=== PATIENT | male | born 1940 | race African-American/Black ===

== ENCOUNTER 2017-03-27 12:07 | Day surgery (SDC) | payer MEDICARE ==
[2017-03-23 16:26] VITALS: BMI 43.7
[~2017-03-27 12:07] MED LIST: DEXAMETHASONE SOD PHOSPHATE 10 MG/ML 1 ML VIAL IV ONE; HYDROmorphone 1 MG/ML 1 ML SYRINGE IVP PRN; LACTATED RINGERS 1,000 ML IV SCH; LIDOCAINE 1% 20 ML VIAL (10MG/ML) FOR IV START INTRADERMA PRN; ONDANSETRON 4 MG/2 ML VIAL IVP ONE; Pre Op ABX Message 1 EACH MISC MISCELLANE ONE; SCOPOLAMINE 1.5MG/72HR PATCH TRANSDERM ONE
[2017-03-27] MEDS ORDERED: BUPIVACAINE (PF) 0.5% 30 ML VIAL SQ ONE ×2 (13:20→14:35)
[2017-03-27] MEDS ORDERED: LIDOCAINE 2% INJ 20 MG/ML SQ ONE ×2 (13:21→14:35)
[2017-03-27 13:35] VITALS: RESP 16; TEMP 98.1
[2017-03-27] MEDS ORDERED: PROPOFOL 10 MG/ML 20 ML VIAL IV ONE (14:18)
[2017-03-27 15:01] VITALS: PULSE 63
[2017-03-27 15:28] VITALS: BP 108/71
--- NOTE | 2017-04-02 08:14 | OP ---
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 Right carpal tunnel syndrome. 2. Cubital tunnel syndrome, right elbow. POSTOPERATIVE DIAGNOSES: 1. Right carpal tunnel syndrome. 2. Cubital tunnel syndrome, right elbow. OPERATION: 1. Right carpal tunnel release. 2. Right cubital tunnel release. ANESTHESIA: ESTIMATED BLOOD LOSS: SPECIMENS REMOVED: COMPLICATIONS: OPERATIVE FINDINGS: DESCRIPTION OF PROCEDURE: PROCEDURE #1: The patient was taken to the operative suite where a sedation was administered by the Department of Anesthesia. I then performed a local injection along the line of the incision with a combination of Marcaine and Xylocaine both without epinephrine. The arm and hand were then prepped and draped in the usual manner. The arm was elevated, exsanguinated and the cuff was inflated to 250 mmHg. A longitudinal incision was made along the ring finger ray distal to the wrist crease. Dissection was taken through the skin and subcutaneous tissue, initially sharp through the skin and then blunt through the subcutaneous tissue to ensure protection of any potential terminal transverse branches of the palmar cutaneous nerve. The palmar fascia was then incised under direct vision longitudinally exposing the transverse carpal ligament. The transverse carpal ligament also was incised under direct vision. The dissection was then continued proximally beneath the skin under direct vision to release the distal forearm fascia. The median nerve was then reflected free of tenosynovium to ensure no adhesions. The tourniquet was then released. The wound was then irrigated and the skin was closed with a running 5-0 nylon suture. A soft bulky dressing was applied including a volar plaster splint holding the wrist in a neutral slightly extended position. PROCEDURE #2: A longitudinal incision was made, somewhat posteriorly near the olecranon. Dissection was then taken through the skin and subcutaneous tissue with blunt dissection then performed to protect any posterior branches of the medial antebrachial cutaneous nerve of the arm. The ulnar nerve was then visualized in the retrocondylar groove and was traced in both the proximal and distal directions. Care was taken to ensure all potential sites of nerve entrapment were decompressed including the arcade of [place], the medial intermuscular septums, the retrocondylar groove, decubital tunnel and the flexor aponeurosis distally. Care was taken to avoid dissecting the ulnar nerve from its vascular supply. At the completion of the procedure, the elbow was placed in flexion and there is no sign of subluxation. The wound was then irrigated and the skin was closed with running 5-0 nylon suture. Marcaine was injected for long acting anesthetic. A soft bulky dressing was applied and the patient taken to the recovery room in satisfactory condition.
== END 2017-03-27 15:37 | disposition home or self-care (01) ==
LOC: OR 12:07
PROVIDERS: ATTEND Orthopaedic Surgery Hand Surgery
DX: G56.01 Carpal tunnel syndrome, right upper limb (principal); G56.21 Lesion of ulnar nerve, right upper limb; I11.0 Hypertensive heart disease with heart failure; I50.9 Heart failure, unspecified; E78.5 Hyperlipidemia, unspecified; J45.909 Unspecified asthma, uncomplicated; G47.30 Sleep apnea, unspecified; K21.9 Gastro-esophageal reflux disease without esophagitis; I25.10 Atherosclerotic heart disease of native coronary artery without angina pectoris; Z95.5 Presence of coronary angioplasty implant and graft; I25.2 Old myocardial infarction; Z79.82 Long term (current) use of aspirin; Z79.891 Long term (current) use of opiate analgesic; Z79.899 Other long term (current) drug therapy; Z87.891 Personal history of nicotine dependence
CPT/HCPCS: 64721; 64718; J2001; J1100; J2405; J2704

== ENCOUNTER → 2018-03-27 | Outpatient (CLI) | payer MEDICARE ==
[2018-03-27 13:17] LABS: Basophils % (A) 1 %; Eosinophils % (A) 0 %; HGB 12.8 gm/dL (13.0-17.5); Hypochromasia Marked; Lymphocytes # (A) 0.8 k/uL (1.0-4.8); Lymphocytes % (A) 14 %; MCH 25.7 pg (25.0-35.0); MCHC 31.2 g/dL (31.0-37.0); MCV 82.6 fL (80.0-100.0); Mean Platelet Volume 7.7; Monocytes # (A) 0.4 k/uL (0-1.0); Monocytes % (A) 7 %; Neutrophils # (A) 4.5 k/uL (1.3-7.7); Neutrophils % (A) 75 %; Platelet Count 178 k/uL (150-450); RBC 4.97 m/uL (4.30-5.90); RDW 15.5 % (11.5-15.5)
[2018-03-27 13:44] LABS: ALT 35 U/L (21-72); AST 31 U/L (17-59); Albumin 3.7 g/dL (3.5-5.0); Alkaline Phosphatase 100 U/L (38-126); Anion Gap 11 mmol/L; Blood Urea Nitrogen 17 mg/dL (9-20); C Reactive Protein 33.9 mg/L (<10.0); Calcium 9.6 mg/dL (8.4-10.2); Carbon Dioxide 30 mmol/L (22-30); Chloride 104 mmol/L (98-107); Cholesterol 126 mg/dL (<200); Creatine Kinase 115 U/L (55-170); Glucose 88 mg/dL (74-99); HDL Cholesterol 44 mg/dL (40-60); LDH 552 U/L (313-618); LDL Cholesterol,Calculated 73 mg/dL (0-99); Magnesium 2.1 mg/dL (1.6-2.3); Phosphorus 3.3 mg/dL (2.5-4.5); Potassium 4.5 mmol/L (3.5-5.1); Sodium 145 mmol/L (137-145); Total Bilirubin 0.4 mg/dL (0.2-1.3); Total Protein 6.7 g/dL (6.3-8.2); Triglycerides 43 mg/dL (<150)
[2018-03-27 14:08] LABS: Prostate Specific Antigen 1.18 ng/mL (0.00-4.00)
[2018-03-27 15:55] LABS: Erythrocyte Sedimentation Rate 28 mm/hr (0-15)
[2018-03-27 21:25] LABS: Parathyroid Hormone Intact 21.1 pg/mL (14.0-72.0)
[2018-03-27 21:55] LABS: Hemoglobin A1C 5.9 % (4.0-6.0)
[2018-03-27 22:38] LABS: Iron Saturation 7.45 (15.00-50.00)
[2018-03-27 22:43] LABS: Vitamin D 25 Hydroxy 43.9 ng/mL (30.0-100.0)
== END | disposition home or self-care (01) ==
LOC: LABWHC1 12:17
PROVIDERS: ATTEND Internal Medicine
DX: D64.9 Anemia, unspecified (principal); M10.9 Gout, unspecified; E11.22 Type 2 diabetes mellitus with diabetic chronic kidney disease; N18.3 Chronic kidney disease, stage 3 (moderate); E78.5 Hyperlipidemia, unspecified; E21.3 Hyperparathyroidism, unspecified; I12.9 Hypertensive chronic kidney disease with stage 1 through stage 4 chronic kidney disease, or unspecified chronic kidney disease; E55.9 Vitamin D deficiency, unspecified; M81.0 Age-related osteoporosis without current pathological fracture; Q61.9 Cystic kidney disease, unspecified
CPT/HCPCS: 36415; 80053; 80061; 82306; 82550; 82728; 83036; 83540; 83550; 83615; 83735; 83970; 84100; 84153; 84439; 84443; 84550; 85025; 85652; 86140

== ENCOUNTER → 2018-04-16 | Outpatient (CLI) | payer MEDICARE ==
--- NOTE | 2018-04-16 22:06 | CT ---
EXAMINATION TYPE: CT chest w con DATE OF EXAM: 04/16/2018 COMPARISON: Most recent chest x-ray January 18, 2010 HISTORY: Productive cough per patient. Unspecified pulmonary fibrosis per order. CT DLP: 662 mGycm. Automated Exposure Control for Dose Reduction was Utilized. TECHNIQUE: CT scan of the thorax is performed following with IV Contrast, patient injected with 100 mL of Isovue 300. FINDINGS: LUNGS: There is redemonstration bulla and bleb formation with scarring and honeycomb formation involv ing the inferior lateral right upper lobe. There are additional areas of reticulation and scarring wi th honeycombing in both lower lobes most prominent near diaphragms. There is scarring and honeycombin g in the right middle lobe and lingula near the diaphragms. There is relative sparing with some perip heral reticulation and fibrosis involving the periphery of the left upper lobe. No suspicious focal c onsolidation is present. No pleural effusion or pneumothorax is noted. There is mild central bronchie ctasis. MEDIASTINUM: There are no greater than 1 cm hilar or mediastinal lymph nodes. No cardiomegaly or pe ricardial effusion is seen. There is moderate to severe three-vessel coronary artery calcification w hich is noted marker for coronary artery disease. Main pulmonary artery measures 3.0 cm at the bifurc ation axial image 26, CT findings consistent with mild underlying pulmonary hypertension. Adjacent as cending aorta measures 4.0 cm in diameter. OTHER: There is moderate size hiatal hernia. Ingested pill is noted dependently in gastric antrum. Th ere are few simple appearing cysts upper pole of the right kidney. There is multilevel spurring inter space narrowing in the thoracic spine. Exaggerated thoracic kyphosis is seen. IMPRESSION: Bilateral parenchymal fibrosis redemonstrated with relative sparing of left upper lobe, n o suspicious acute pulmonary process. No obvious progression from 2010 chest x-ray.
== END | disposition home or self-care (01) ==
LOC: RADCTMAIN 16:43
PROVIDERS: ATTEND Internal Medicine
DX: J84.10 Pulmonary fibrosis, unspecified (principal)
CPT/HCPCS: 82565; 84520; 71260; 36415; Q9967

== ENCOUNTER → 2018-08-21 | Outpatient (CLI) | payer MEDICARE ==
[2018-08-21 12:46] LABS: Basophils % (A) 0 %; Eosinophils % (A) 0 %; HCT 45.7 % (39.0-53.0); HGB 13.6 gm/dL (13.0-17.5); Hypochromasia Marked; Lymphocytes # (A) 0.9 k/uL (1.0-4.8); Lymphocytes % (A) 14 %; MCH 27.8 pg (25.0-35.0); MCHC 29.8 g/dL (31.0-37.0); MCV 93.1 fL (80.0-100.0); Mean Platelet Volume 8.3; Monocytes # (A) 0.5 k/uL (0-1.0); Monocytes % (A) 7 %; Neutrophils # (A) 4.7 k/uL (1.3-7.7); Neutrophils % (A) 75 %; Platelet Count 194 k/uL (150-450); RBC 4.91 m/uL (4.30-5.90); RDW 15.3 % (11.5-15.5); Reticulocyte % 1.4 % (0.5-2.0); WBC 6.3 k/uL (3.8-10.6)
[2018-08-21 20:06] LABS: Iron Saturation 8.89 (15.00-50.00)
== END | disposition home or self-care (01) ==
LOC: LABWHC1 12:06
PROVIDERS: ATTEND Internal Medicine
DX: D64.9 Anemia, unspecified (principal)
CPT/HCPCS: 36415; 82728; 83540; 83550; 85025; 85045

== ENCOUNTER → 2018-09-03 | Outpatient (CLI) | payer MEDICARE ==
[2018-09-03 19:13] LABS: ALT 19 U/L (10-49); AST 29 U/L (14-35); Albumin/Globulin Ratio 1.59 (1.20-2.10); Alkaline Phosphatase 102 U/L (41-126); C Reactive Protein <0.4 mg/dL (0.0-0.8); Calcium 8.8 mg/dL (8.7-10.3); Carbon Dioxide 29.9 mmol/L (21.6-31.8); Chloride 112 mmol/L (96-109); Globulin 2.2 g/dL (2.1-3.7); Glucose 92 mg/dL (70-110); Potassium 4.4 mmol/L (3.5-5.5); Sodium 146 mmol/L (135-145); Total Bilirubin 0.2 mg/dL (0.3-1.2); Total Protein 5.7 g/dL (6.2-8.2)
[2018-09-03 20:31] LABS: Protein, Total 5.7 g/dL (6.2-8.2); Rheumatoid Factor 17 IU/mL (0-15)
[2018-09-03 21:32] LABS: Anti-DNA, DS unit <1.0 IU/mL; Cyclic Citrullinated Pep IgG NEGATIVE (NEGATIVE); DNA Double-Stranded NEGATIVE (NEGATIVE)
[2018-09-04 11:57] LABS: Complement C3 81.6 mg/dL (80.0-207.0)
[2018-09-04 13:20] LABS: ANA Pattern Speckled
[2018-09-05 11:32] LABS: Albumin 2.99 g/dL (3.80-4.90); Gamma Globulin 1.14 g/dL (0.70-1.50)
== END | disposition home or self-care (01) ==
LOC: LABWHC1 12:55
PROVIDERS: ATTEND Internal Medicine
DX: J44.9 Chronic obstructive pulmonary disease, unspecified (principal); D64.9 Anemia, unspecified; M81.0 Age-related osteoporosis without current pathological fracture; J84.10 Pulmonary fibrosis, unspecified; M06.9 Rheumatoid arthritis, unspecified; M35.9 Systemic involvement of connective tissue, unspecified
CPT/HCPCS: 36415; 80053; 83735; 84165; 85652; 86038; 86039; 86140; 86160; 86162; 86200; 86225; 86235; 86334; 86335; 86431

== ENCOUNTER → 2018-10-08 | Outpatient (CLI) | payer MEDICARE ==
--- NOTE | 2018-10-08 15:55 | XR ---
EXAMINATION TYPE: XR ankle complete 3 views bilateral, XR foot complete 3 views bilateral DATE OF EXAM: 10/08/2018 Comparison: None Clinical History: 78-year-old male with pain, limited range of motion, M81.0 Osteoarthritis Findings: Left: Old healed fracture deformity distal fibular shaft. Diffuse soft tissue swelling is present. While th e ankle mortise is maintained, there is some irregularity of the subchondral bone along the medial ta lar dome. There is severe pes planus deformity and nonspecific forefoot and midfoot soft tissue swell ing. Hallux valgus deformity with bunion and moderate degenerative change at the first MTP joint. Mod erate degenerative changes at both calcaneal cuboidal and talonavicular joints. Right: Hindfoot valgus deformity with degenerative joint space narrowing at the tibiotalar joint and irregul arity of the subchondral bone along the lateral talar dome. Soft tissue swelling. Severe pes planus d eformity. Suspect underlying degenerative change within the subtalar joint which is not well delineat ed due to the severe pes planus. Degenerative changes at least moderate at the talonavicular and calc aneocuboid joints. Hallux valgus deformity with bunion and moderate degenerative change of the first MTP joint. Combined Impression: 1. Severe pes planus on both sides with resultant hindfoot valgus and right greater than left tibiota lar and subtalar joint osteoarthrosis. 2. Additional midfoot osteoarthrosis particularly affecting the talonavicular and calcaneocuboid join ts. 3. Bilateral hallux valgus deformities with bunion and moderate first MTP joint OA. 4. Nonspecific soft tissue swelling throughout the ankles and feet.
== END ==
LOC: RADXRMAIN 15:15
PROVIDERS: ATTEND Internal Medicine
DX: M19.071 Primary osteoarthritis, right ankle and foot (principal); M81.0 Age-related osteoporosis without current pathological fracture; M20.12 Hallux valgus (acquired), left foot; M20.11 Hallux valgus (acquired), right foot

== ENCOUNTER 2018-10-17 09:21 | Day surgery (SDC) | payer MEDICARE ==
[2018-10-12 12:45] VITALS: BMI 30.6
[~2018-10-17 09:21] MED LIST changes: -DEXAMETHASONE SOD PHOSPHATE 10 MG/ML 1 ML VIAL IV ONE; -HYDROmorphone 1 MG/ML 1 ML SYRINGE IVP PRN; -LIDOCAINE 1% 20 ML VIAL (10MG/ML) FOR IV START INTRADERMA PRN; -ONDANSETRON 4 MG/2 ML VIAL IVP ONE; -Pre Op ABX Message 1 EACH MISC MISCELLANE ONE; -SCOPOLAMINE 1.5MG/72HR PATCH TRANSDERM ONE
[2018-10-17 09:55] VITALS: RESP 16; TEMP 98.4
[2018-10-17] MEDS ORDERED: MIDAZOLAM 2 MG/2 ML VIAL ONE (09:56)
[2018-10-17] MEDS ORDERED: fentaNYL (PF) 50 MCG/ML 2 ML AMP ONE (09:56)
[2018-10-17] MEDS ORDERED: PROPOFOL 10 MG/ML 20 ML VIAL IV ONE (09:56)
[2018-10-17] MEDS ORDERED: LIDOCAINE 1% 20 ML VIAL (10MG/ML) FOR IV START INTRADERMA ONE (09:57)
--- NOTE | 2018-10-17 10:09 | P.PCN ---
Date of Procedure: 10/17/18 Procedure(s) Performed: BRIEF HISTORY: Patient is a 78-year-old, pleasant, has intermittent male, scheduled for an upper endoscopy as a part of evaluation of iron deficiency anemia. He lately has been having severe heartburn and passive regurgitation for the last month with small amount of blood in the emesis on 2 different occasions. His being on [place] 40 mg daily for a month and doing much better.. PROCEDURE PERFORMED: Esophagogastroduodenoscopy with biopsy. PREOPERATIVE DIAGNOSIS: GERD/passive regurgitation/iron deficiency anemia. IV sedation per anesthesia. PROCEDURE: After informed consent was obtained, the patient was brought into the endoscopy unit. IV sedation was administered by Anesthesia under continuous monitoring. Initially the Olympus GIF-140 video endoscope was inserted into the mouth. Esophagus intubated without any difficulty. It was gradually advanced into the stomach and duodenum and carefully examined. The bulb and the second part of the duodenum appeared normal. The scope at this time was withdrawn to the stomach, adequately insufflated with air, and upon careful examination, mucosa of the antrum, body, cardia and the fundus appeared normal. The scope was then withdrawn into the esophagus. There was a moderate to large size hiatal hernia. The diaphragmatic impression was located at 40 cm from the incisors. The GE junction was located at 35 cm from the incisors. There was a long segment of Nash's esophagus extending from 30-35 to the stomach incisors and the mucosa in the segment of Nash's esophagus had superficial erosions especially at 32 cm from the incisors and multiple biopsies were done from these areas. Proximal to the segment of Nash's esophagus there were linear erosions consistent with LA grade B reflux esophagitis. The rest of esophagus appeared normal and the patient tolerated the procedure well. IMPRESSION: 1. 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 2. Moderate to large size hiatal hernia. 3. Linear erosions in the distal esophagus consistent with LA grade B reflux esophagitis. RECOMMENDATIONS: The findings of this examination were discussed with the patient as well as his family. He was advised to follow with the biopsies as. He will be started on Protonix 40 minute grams twice daily to be taken half hour before breakfast and dinnertime and follow antireflux measures. He'll be seen in office in 6 weeks.
[2018-10-17 10:28] VITALS: BP 139/87; PULSE 74
== END 2018-10-17 11:08 | disposition home or self-care (01) ==
LOC: ORWHC2ENDO 09:21
PROVIDERS: ATTEND Internal Medicine Gastroenterology
DX: K22.70 Barrett's esophagus without dysplasia (principal); K44.9 Diaphragmatic hernia without obstruction or gangrene; Z79.899 Other long term (current) drug therapy; I25.10 Atherosclerotic heart disease of native coronary artery without angina pectoris; I10 Essential (primary) hypertension; I25.2 Old myocardial infarction; E78.49 Other hyperlipidemia; Z95.5 Presence of coronary angioplasty implant and graft; K21.9 Gastro-esophageal reflux disease without esophagitis; Z79.891 Long term (current) use of opiate analgesic
CPT/HCPCS: 88305; 43239; J2250; J3010; J2704

== ENCOUNTER → 2019-01-21 | Outpatient (CLI) | payer MEDICARE ==
[2019-01-21 20:01] LABS: ALT 13 U/L (10-49); AST 22 U/L (14-35); C Reactive Protein <0.4 mg/dL (0.0-0.8); Calcium 9.2 mg/dL (8.7-10.3); Carbon Dioxide 33.8 mmol/L (21.6-31.8); Chloride 103 mmol/L (96-109); Cholesterol 133 mg/dL (0-200); Creatine Kinase 110 U/L (35-257); Glucose 83 mg/dL (70-110); LDL Cholesterol,Calculated 82.6 mg/dL (0.0-131.0); Potassium 4.3 mmol/L (3.5-5.5); Sodium 141 mmol/L (135-145); Uric Acid 6.1 mg/dL (3.7-8.7)
== END ==
LOC: LABWHC1 11:30
PROVIDERS: ATTEND Internal Medicine
DX: E78.5 Hyperlipidemia, unspecified (principal); E87.8 Other disorders of electrolyte and fluid balance, not elsewhere classified; K75.9 Inflammatory liver disease, unspecified; T50.905A Adverse effect of unspecified drugs, medicaments and biological substances, initial encounter
CPT/HCPCS: 36415; 80048; 80061; 82550; 84450; 84460; 84550; 85652; 86140

== ENCOUNTER 2019-02-05 12:56 | Observation (INO) | payer MEDICARE ==
--- NOTE | 2019-02-05 13:37 | ED ---
General Adult HPI - General Chief complaint: Chest Pain Stated complaint: chest pain Time Seen by Provider: 02/05/19 13:23 Source: patient, RN notes reviewed Mode of arrival: wheelchair Limitations: no limitations - History of Present Illness Initial comments: 78-year-old male presenting for evaluation of chest pain. Patient sent in from primary care office with chief complaint of chest pain. He does have history of CAD, previous stenting. He developed substernal chest pain which radiated to his back. This is been intermittent over the past 3 or 4 days. He has some associated nausea and vomiting. No diaphoresis. Denies chest pain at the time of my evaluation. Denies abdominal pain. Denies history of DVT or PE. He does report some minimal lower extremity swelling which does resolve with rest and elevation. - Related Data Home Medications Medication Instructions Recorded Confirmed Cholecalciferol (Vitamin D3) 2,000 unit PO DAILY 03/23/17 10/17/18 [Vitamin D3] Cod Liver Oil 2 cap PO DAILY 03/23/17 10/17/18 Hydrochlorothiazide [Hydrodiuril] 25 mg PO DAILY 03/23/17 10/17/18 Magnesium Oxide [Magnesium] 500 mg PO DAILY 03/23/17 10/17/18 Metoprolol Tartrate [Lopressor] 50 mg PO BID 03/23/17 10/17/18 Vitamin B Complex 1 each PO DAILY 03/23/17 10/17/18 Vitamin E (Dl,Tocopheryl Acet) 800 unit PO DAILY 03/23/17 10/17/18 [Vitamin E] traMADol HCL [Ultram] 50 mg PO BID PRN 03/23/17 10/17/18 Ferrous Sulfate [Feosol] 325 mg PO BID 10/12/18 10/17/18 Allergies Allergy/AdvReac Type Severity Reaction Status Date / Time No Known Allergies Allergy Verified 10/17/18 09:58 Review of Systems ROS Statement: Those systems with pertinent positive or pertinent negative responses have been documented in the HPI. ROS Other: All systems not noted in ROS Statement are negative. Past Medical History Past Medical History: GERD/Reflux, Hyperlipidemia, Hypertension, Myocardial Infarction ([place]) Additional Past Medical History / Comment(s): constipation, spit up blood recently, shortness of breath with exertion Last Myocardial Infarction Date:: 2001 History of Any Multi-Drug Resistant Organisms: None Reported Past Surgical History: Heart Catheterization With Stent, Prostate Surgery, Tonsillectomy Additional Past Surgical History / Comment(s): BILAT EYE SX. SKIN GRAFTS. TURP. COLONOSCOPY, rt foot toes bone removed, 2nd toe from great toe lt foot bone removed Past Anesthesia/Blood Transfusion Reactions: No Reported Reaction Date of Last Stent Placement:: 2001 Past Psychological History: No Psychological Hx Reported Smoking Status: Former smoker - Past Family History Mother Family Medical History: No Reported History Father Additional Family Medical History / Comment(s): mesothelioma General Exam Limitations: no limitations General appearance: alert, in no apparent distress Head exam: Present: atraumatic, normocephalic Eye exam: Present: normal appearance, PERRL ENT exam: Present: normal exam Neck exam: Present: normal inspection. Absent: tenderness, meningismus Respiratory exam: Present: normal lung sounds bilaterally. Absent: respiratory distress, wheezes Cardiovascular Exam: Present: regular rate, normal rhythm, systolic murmur GI/Abdominal exam: Present: soft. Absent: distended, tenderness Extremities exam: Present: normal inspection, normal capillary refill. Absent: pedal edema Neurological exam: Present: alert, oriented X3, CN II-XII intact. Absent: motor sensory deficit Psychiatric exam: Present: normal affect, normal mood Skin exam: Present: warm, dry, intact. Absent: cyanosis, diaphoretic Course Vital Signs 02/05/19 02/05/19 12:58 15:28 Temperature 98.4 F 98.6 F Pulse Rate 89 89 Respiratory 16 18 Rate Blood Pressure 125/83 124/90 O2 Sat by Pulse 100 98 Oximetry EKG Findings - EKG Comments: EKG Findings:: EKG: Normal sinus rhythm, sinus arrhythmia, ventricular rate 88, SD interval 160, QRS duration 86, QTC 447, no ischemic changes. Medical Decision Making - Medical Decision Making 78-year-old male presenting with chest pain radiating to his back. He was sent in by his primary care physician, concern for aortic pathology. Chest x-ray shows concern for primary fibrosis, question infiltrate. Patient is started on antibiotics in the emergency department although clinically I doubt pneumonia at this time. Normal white blood cell count, hemoglobin 12.2, troponin negative, CT angiography is obtained which is negative for aortic pathology, he does have esophageal air-fluid levels and dilated stomach. Patient started on proton pump inhibitor, Reglan for increased motility, will be admitted, case discussed with primary care physician. Gastroenterology placed on consult. No vomiting in the emergency department, NG tube will be held awaiting trial of Reglan. - Lab Data Result diagrams: 02/05/19 13:05 02/05/19 13:05 Lab Results 02/05/19 02/05/19 02/05/19 Range/Units 13:05 13:05 13:05 WBC 9.4 (3.8-10.6) k/uL RBC 4.41 (4.30-5.90) m/uL Hgb 12.2 L (13.0-17.5) gm/dL Hct 38.8 L (39.0-53.0) % MCV 88.1 (80.0-100.0) fL MCH 27.8 (25.0-35.0) pg MCHC 31.5 (31.0-37.0) g/dL RDW 17.1 H (11.5-15.5) % Plt Count 175 (150-450) k/uL Neutrophils % 81 % Lymphocytes % 9 % Monocytes % 7 % Eosinophils % 1 % Basophils % 0 % Neutrophils # 7.6 (1.3-7.7) k/uL Lymphocytes # 0.8 L (1.0-4.8) k/uL Monocytes # 0.7 (0-1.0) k/uL Eosinophils # 0.1 (0-0.7) k/uL Basophils # 0.0 (0-0.2) k/uL Hypochromasia Slight Anisocytosis Slight PT 11.0 (9.0-12.0) sec INR 1.0 (<1.2) APTT 29.0 (22.0-30.0) sec Sodium 145 (137-145) mmol/L Potassium 4.5 (3.5-5.1) mmol/L Chloride 109 H (98-107) mmol/L Carbon Dioxide 33 H (22-30) mmol/L Anion Gap 3 mmol/L BUN 26 H (9-20) mg/dL Creatinine 0.93 (0.66-1.25) mg/dL Est GFR (CKD-EPI)AfAm >90 (>60 ml/min/1.73 sqM) Est GFR (CKD-EPI)NonAf 78 (>60 ml/min/1.73 sqM) Glucose 114 H (74-99) mg/dL Calcium 9.7 (8.4-10.2) mg/dL Magnesium 2.2 (1.6-2.3) mg/dL Total Bilirubin 0.5 (0.2-1.3) mg/dL AST 22 (17-59) U/L ALT 29 (21-72) U/L Alkaline Phosphatase 105 (38-126) U/L Troponin I (0.000-0.034) ng/mL Total Protein 6.7 (6.3-8.2) g/dL Albumin 3.6 (3.5-5.0) g/dL 02/05/19 Range/Units 13:05 WBC (3.8-10.6) k/uL RBC (4.30-5.90) m/uL Hgb (13.0-17.5) gm/dL Hct (39.0-53.0) % MCV (80.0-100.0) fL MCH (25.0-35.0) pg MCHC (31.0-37.0) g/dL RDW (11.5-15.5) % Plt Count (150-450) k/uL Neutrophils % % Lymphocytes % % Monocytes % % Eosinophils % % Basophils % % Neutrophils # (1.3-7.7) k/uL Lymphocytes # (1.0-4.8) k/uL Monocytes # (0-1.0) k/uL Eosinophils # (0-0.7) k/uL Basophils # (0-0.2) k/uL Hypochromasia Anisocytosis PT (9.0-12.0) sec INR (<1.2) APTT (22.0-30.0) sec Sodium (137-145) mmol/L Potassium (3.5-5.1) mmol/L Chloride (98-107) mmol/L Carbon Dioxide (22-30) mmol/L Anion Gap mmol/L BUN (9-20) mg/dL Creatinine (0.66-1.25) mg/dL Est GFR (CKD-EPI)AfAm (>60 ml/min/1.73 sqM) Est GFR (CKD-EPI)NonAf (>60 ml/min/1.73 sqM) Glucose (74-99) mg/dL Calcium (8.4-10.2) mg/dL Magnesium (1.6-2.3) mg/dL Total Bilirubin (0.2-1.3) mg/dL AST (17-59) U/L ALT (21-72) U/L Alkaline Phosphatase (38-126) U/L Troponin I <0.012 (0.000-0.034) ng/mL Total Protein (6.3-8.2) g/dL Albumin (3.5-5.0) g/dL Disposition Clinical Impression: Chest pain, Gastric outlet obstruction, Esophageal reflux Disposition: ADMITTED IP TO THIS HOSP Condition: Stable Is patient prescribed a controlled substance at d/c from ED?: No Referrals: Garrick Turcios MD [Primary Care Provider] - 1-2 days Decision to Admit Reason: Admit from EC Decision Date: 02/05/19 Decision Time: 15:41
[2019-02-05 14:05] LABS: Anisocytosis Slight; Basophils % (A) 0 %; Eosinophils # (A) 0.1 k/uL (0-0.7); Eosinophils % (A) 1 %; HCT 38.8 % (39.0-53.0); HGB 12.2 gm/dL (13.0-17.5); Hypochromasia Slight; Lymphocytes # (A) 0.8 k/uL (1.0-4.8); Lymphocytes % (A) 9 %; MCH 27.8 pg (25.0-35.0); MCHC 31.5 g/dL (31.0-37.0); MCV 88.1 fL (80.0-100.0); Mean Platelet Volume 8.2; Monocytes # (A) 0.7 k/uL (0-1.0); Monocytes % (A) 7 %; Neutrophils # (A) 7.6 k/uL (1.3-7.7); Neutrophils % (A) 81 %; Platelet Count 175 k/uL (150-450); RBC 4.41 m/uL (4.30-5.90); RDW 17.1 % (11.5-15.5); WBC 9.4 k/uL (3.8-10.6)
[2019-02-05 14:07] LABS: ALT 29 U/L (21-72); AST 22 U/L (17-59); Albumin 3.6 g/dL (3.5-5.0); Alkaline Phosphatase 105 U/L (38-126); Anion Gap 3 mmol/L; Blood Urea Nitrogen 26 mg/dL (9-20); Calcium 9.7 mg/dL (8.4-10.2); Carbon Dioxide 33 mmol/L (22-30); Chloride 109 mmol/L (98-107); Glucose 114 mg/dL (74-99); Magnesium 2.2 mg/dL (1.6-2.3); Potassium 4.5 mmol/L (3.5-5.1); Sodium 145 mmol/L (137-145); Total Bilirubin 0.5 mg/dL (0.2-1.3); Total Protein 6.7 g/dL (6.3-8.2)
--- NOTE | 2019-02-05 14:41 | XR ---
EXAMINATION TYPE: XR chest 2V DATE OF EXAM: 02/05/2019 COMPARISON: 01/18/2010 INDICATION: Chest pain, COPD TECHNIQUE: Frontal and lateral views of the chest are obtained. FINDINGS: The heart size is normal. The pulmonary vasculature is normal. Left lower lobe infiltrate is present. This is worsening from comparison. Right upper lobe infiltrate is present. This appears more chronic. Mild infiltrate is at the right base improved from comparison . IMPRESSION: 1. Multiple infiltrates greatest in the right upper and left lower lobes. Correlate for pneumonia. Th is is likely superimposed fibrosis.
--- NOTE | 2019-02-05 15:25 | CT ---
EXAMINATION TYPE: CT angio thor/abd pel aorta DATE OF EXAM: 02/05/2019 COMPARISON: 04/16/2018 HISTORY: Chest pain CT DLP: 1802 mGycm. Automated Exposure Control for Dose Reduction was Utilized. CONTRAST: CT scan of the thorax, abdomen and pelvis is performed without and with IV Contrast, patient injected with 100 mL of Isovue 370. FINDINGS: LUNGS: Extent into emphysematous changes are seen as well as basilar predominant pulmonary fibrosis w ith areas of honeycombing. Left basilar predominant groundglass opacities are again scattered within the lungs. MEDIASTINUM: Incidentally noted bovine aortic arch. No evidence of thoracic or abdominal aortic disse ction. The ascending thoracic aorta is upper limits of normal measuring 3.9 cm. The aortic root just above the sinotubular junction is also upper limits of normal measuring 3.9 cm. There is tortuosity o f the descending thoracic aorta. Moderate coronary calcifications are seen. There are no greater than 1 cm hilar or mediastinal lymph nodes. No pericardial effusion is seen. OTHER: There is a partial intrathoracic stomach. There is thickening of the distal esophagus and a fl uid-filled esophagus to the level of the thoracic inlet. This places the patient at risk for aspirati on. LIVER/GB: Angiographic phase limits evaluation however no discrete mass is seen. Gallbladder is parti ally contracted. No radiopaque calculi. PANCREAS: Slight pancreatic ductal prominence without discrete dilatation is seen. SPLEEN: No significant abnormality is seen. ADRENALS: No focal measurable nodule although there is slight thickening of the left. KIDNEYS: There are bilateral renal cysts. The largest measures 5.5 cm and the right kidney. No hydron ephrosis. BOWEL: Again there is moderate degree fecal stasis. Partial intrathoracic stomach is described above as is a large bowel containing ventral infraumbilical hernia. GENITAL ORGANS: Prostate gland is enlarged. LYMPH NODES: No greater than 1cm abdominal or pelvic lymph nodes are appreciated. OSSEOUS STRUCTURES: Extensive degenerative changes of the lower lumbar spine are seen with mottled ap pearance of the vertebrae of the lumbar spine. Moderate degenerative changes of the remainder the spi ne are seen. Moderate femoral acetabular arthropathy is also noted.. OTHER: Abdominal aorta is of normal caliber with minimal ectasia distally measuring up to 2.9 cm. Mod erate atherosclerosis is seen of the abdominal aorta and its branches. There is a large bowel contain ing infraumbilical hernia without proximal bowel dilatation to suggest current obstruction. Large bur den fecal stasis is seen throughout. Some thickening of the distal rectum is seen that may relate to incomplete distention or sessile mass. IMPRESSION: 1. No evidence of thoracic or abdominal aortic dissection. 2. Partial intrathoracic stomach with fluid-filled dilated esophagus. Air-fluid level near the thorac ic inlet is seen placing this patient at risk for aspiration. 3. Extensive emphysematous change with pulmonary fibrosis. Basilar predominant groundglass opacities have slightly progressed from the prior. Superimposed infection is possible. 3. Large bowel containing infraumbilical ventral hernia. Correlate for reducibility. 4. Lower abdominal aortic ectasia. 5. Mottled appearance of the lumbar spine bone marrow that may be on the basis of degenerative change although nuclear medicine bone scan could evaluate for more ominous process or MRI of the lumbar spi ne.
[2019-02-05] MEDS ORDERED: AZITHROMYCIN 500 MG in SODIUM CHLORIDE 0.9% 250 ML IVPB STA (15:26)
[2019-02-05] MEDS ORDERED: PANTOPRAZOLE 40 MG/10 ML VIAL IVP STA (15:28)
[2019-02-05] MEDS ORDERED: METOCLOPRAMIDE 5 MG/ML 2 ML VIAL IVP STA (15:28)
[2019-02-05 15:29] VITALS: RESP 18
[2019-02-05] MEDS ORDERED: ACETAMINOPHEN TAB 325 MG TAB PO PRN (15:34)
[2019-02-05] MEDS ORDERED: NALOXONE 0.4 MG/ML 1 ML VIAL IV PRN (15:34)
[2019-02-05] MEDS: METOCLOPRAMIDE 5 MG/ML 2 ML VIAL IVP SCH (17:11)
--- NOTE | 2019-02-05 17:52 | P.HPIM ---
History of Present Illness H&P Date: 02/05/19 Chief Complaint: chest pain radiated to back dictated #[id number] Past Medical History Past Medical History: Coronary Artery Disease (CAD), Heart Failure, COPD, GERD/Reflux, Hyperlipidemia, Hypertension, Myocardial Infarction ([place]), Pneumonia Additional Past Medical History / Comment(s): SOB with exertion, possible pulmonary fibrosis, occasionally "spits" up blood, hiatal hernia, Nash's esophagus, iron anemia, constipation, sinusitis, arthritis in multiple joints. Last Myocardial Infarction Date:: 2003 History of Any Multi-Drug Resistant Organisms: None Reported Past Surgical History: Heart Catheterization With Stent, Prostate Surgery, Tonsillectomy Additional Past Surgical History / Comment(s): BILAT EYE SX FOR STRABISMUS, SKIN GRAFTS D/T POOR WOUND HEALING, TURP, EGD,. COLONOSCOPY, hemorrhoidectomy, rt foot toes bone removed, 2nd toe from great toe lt foot bone removed, R wrist/elbow carpal tunnel releases, L leg wound debridement Past Anesthesia/Blood Transfusion Reactions: No Reported Reaction Date of Last Stent Placement:: 2003 Smoking Status: Former smoker - Past Family History Mother Family Medical History: No Reported History Father Additional Family Medical History / Comment(s): mesothelioma Medications and Allergies Home Medications Medication Instructions Recorded Confirmed Type Hydrochlorothiazide [Hydrodiuril] 25 mg PO DAILY 03/23/17 02/05/19 History Oxybutynin Chloride [Ditropan] 5 mg PO TID 02/05/19 02/05/19 History Pantoprazole Sodium [Protonix] 40 mg PO BID 02/05/19 02/05/19 History Potassium Chloride ER [K-Dur 10] 10 meq PO DAILY 02/05/19 02/05/19 History Prochlorperazine [Compazine] 10 mg PO Q6HR PRN 02/05/19 02/05/19 History Ranitidine HCl [Zantac] 150 mg PO BID 02/05/19 02/05/19 History Simvastatin [Zocor] 40 mg SL 02/05/19 History Tamsulosin [Flomax] 0.4 mg PO HS 02/05/19 02/05/19 History Allergies Allergy/AdvReac Type Severity Reaction Status Date / Time No Known Allergies Allergy Verified 02/05/19 16:41 Physical Exam Vitals: Vital Signs Temp Pulse Pulse Resp BP BP Pulse Ox 02/05/19 17:09 18 02/05/19 17:01 98.5 F 88 18 130/87 96 02/05/19 16:15 98.2 F 91 18 127/88 97 02/05/19 15:28 98.6 F 89 18 124/90 98 02/05/19 12:58 98.4 F 89 16 125/83 100 Intake and Output 02/05/19 02/05/19 02/05/19 06:59 14:59 22:59 Intake Total 420 Balance 420 Intake: Oral 420 Other: Voiding Method Toilet Weight 99.337 kg Results CBC & Chem 7: 02/05/19 13:05 02/05/19 13:05 Labs: Abnormal Lab Results - Last 24 Hours (Table) 02/05/19 02/05/19 Range/Units 13:05 13:05 Hgb 12.2 L (13.0-17.5) gm/dL Hct 38.8 L (39.0-53.0) % RDW 17.1 H (11.5-15.5) % Lymphocytes # 0.8 L (1.0-4.8) k/uL Chloride 109 H (98-107) mmol/L Carbon Dioxide 33 H (22-30) mmol/L BUN 26 H (9-20) mg/dL Glucose 114 H (74-99) mg/dL Thrombosis Risk Factor Assmnt - Choose All That Apply Any of the Below Risk Factors Present?: Yes Each Factor Represents 1 point: Obesity (BMI >25) Other Risk Factors: Yes Each Risk Factor Represents 3 Points: Age 75 years or older Other congenital or acquired thrombophilia - If yes, enter type in comment: No Thrombosis Risk Factor Assessment Total Risk Factor Score: 4 Thrombosis Risk Factor Assessment Level: Moderate Risk
[2019-02-05] MEDS ORDERED: ONDANSETRON 4 MG/2 ML VIAL IVP PRN (18:00)
--- NOTE | 2019-02-05 19:26 | HP ---
HISTORY AND PHYSICAL DATA: FULL CODE. The patient is a 78-year-old -[place] male, . Height is 6 feet 2 inches, weight 99.337 kg, BSA 2.26 m2, BMI 28.1 kg/m2. ALLERGIES: UNKNOWN. CHIEF COMPLAINT: Chest pain that radiated to his back. HISTORY OF PRESENT ILLNESS: The patient is a 78-year-old -[place] male presented to me in the office today on 02/05/2019. At that time he stated that he had chest pain in the precordial area that went directly to the back, to the spine. The pain was 9/10 and it woke him up during the night. With these symptoms and his previous problems, the patient was directed to go directly to the emergency room. I called the ER to notify them to receive Mr. Hutchinson immediately. In the emergency room, he was seen by the ER physician. He stated that the patient has history of coronary artery disease and previous stenting in the past. He developed substernal chest pain that radiated to his back which has been intermittent over the last 3-4 days. He had some nausea and vomiting. We gave him Zofran, but Zofran was not approved by his insurance as an outpatient. We subsequently gave him Compazine, which did not help, and he stopped the medication. He denied a history of PE or DVT in the past. He was walking with a quad cane. He has underlying advanced degenerative arthritis of the lower extremities. HOME MEDICATION: Per the patient's records, he is on: 1. Vitamin D3 2000 once daily. 2. Cod liver oil 2 capsules daily. 3. Hydrochlorothiazide 25 mg daily. 4. Magnesium 500 mg daily. 5. Metoprolol tartrate 50 mg twice a day. 6. Vitamin B complex once a day. 7. Vitamin 800 mg daily. 8. Tramadol 50 mg b.i.d. p.r.n. 9. Ferrous sulfate 325 mg twice a day. PAST MEDICAL HISTORY: 1. History of GERD. 2. Hyperlipidemia. 3. Hypertension. 4. Myocardial infarction and stent placement. 5. History of constipation. 6. Shortness of breath on exertion. 7. MA in 2001. 8. Heart catheterization and stent. 9. Prostate surgery. 10.Tonsillectomy. 11.TURP in the past. 12.Bilateral eye surgery. 13.Skin graft. 14.Colonoscopy. 15.Right foot toe bone removed and second toe from the great toe in the foot also removed. 16.Stent placement was in 2001. SOCIAL HISTORY: He is an ex-smoker. FAMILY HISTORY: No history of abnormalities or diseases in his mother that he recalls, but his father had mesothelioma. REVIEW OF SYSTEMS: NEUROPSYCHIATRY: He is conscious, alert, oriented x3. RESPIRATORY: Short of breath with exertion. He had severe pulmonary fibrosis, has been taken care of by Dr. Neal, pulmonary doctor. CARDIOVASCULAR: History of MA and history also of COPD. History of hypertension. GENITOURINARY: Benign prostatic hypertrophy. History of mild anemia. History of significant pulmonary fibrosis by a CT scan of the chest without contrast done on 11/26/2012. Also underlying emphysema. He had a CT scan of the thorax dated 04/16/2018 with the impression that he had bilateral parenchymal fibrosis with relative sparing of the left upper lobe; no suspicious acute pulmonary process at that time on that CT scan of the chest. He had underlying mild pulmonary hypertension and he had moderate severe 3-vessel coronary artery calcification. His pulmonary artery was 3.0 cm. He had underlying scarring and honeycombing in the right middle lobe and lingula near the diaphragm. He had also peripheral reticulation and fibrosis involving the periphery of the left upper lobe from that CT scan done on 04/16/2018. He had a hepatobiliary scan done by Dr. Suh on 05/09/2017 and at that time it showed normal hepatic excretion and gallbladder seen and the biliary to the bowel clearance was 40 minutes and the ejection fraction of the gallbladder was 94.3, with no evidence of biliary dyskinesia. He had also an echocardiogram done on 07/17/2012, and at that time it showed moderate concentric hypertrophy. He had mild aortic regurgitation and aortic valve calcified mitral regurgitation, mild, tricuspid regurgitation trace, and he had mild pulmonary regurgitation. His ejection fraction was 50% with moderate concentric hypertrophy. However, there was hypokinesis of the inferolateral wall from the base to the mid wall. He had also 1+ diastolic dysfunction with impaired relaxation. That was done by Dr. Nelson Nichole. Patient has been investigated in the past, on 10/17/[address] Nichole, Gastroenterology. 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 As mentioned, review of systems was of 14 systems, mainly associated with his symptoms of chest pain that goes to the back directly. He has glasses. He has shortness of breath as well as the nausea and vomiting. : No symptoms. MUSCULOSKELETAL: Chronic back pain and he uses a walker. PHYSICAL EXAMINATION: In the office, his blood pressure was 106/88, temperature 98.4, BMI 30.6, his weight 216.2, height 70.5 pulse rate was 86 per minute. When the patient arrived at the hospital, they checked his vital signs again and found that his vital signs were temperature 98.4, pulse 89, respiratory rate 16, blood pressure 125/83, pulse ox 100%. On the examination in the office as well as in the hospital, the patient was conscious, alert, oriented. He had no acute respiratory distress, but he had the recurrent pain in his chest. His head was normocephalic, atraumatic. The pupils were equal, reactive. Conjunctivae pink. Sclerae nonicteric. Oropharynx: He had dentures, upper and lower partial. Able to swallow and eat. He has bilateral hearing deficit and he uses a hearing aid. The neck was supple. No JVD. No thyromegaly. No lymphadenopathy. Trachea midline. The chest had increased anteroposterior diameter and he had regular sinus. He had a soft murmur on the left sternal border with underlying valvular heart disease. GI: No tenderness on the abdomen and in 4 quadrants. EXTREMITIES: No edema. Positive pulses bilaterally and symmetrical. PSYCHIATRIC: He is very pleasant with normal mood and affect. Skin was warm and dry. No cyanosis or diaphoresis. EKG was normal sinus rhythm, sinus arrhythmia with the normal ventricular rate 88. ASSESSMENT: 1. Severe pain in the chest, substernal, that radiated to the back. Rule out dissecting aortic aneurysm; negated and cleared by the CT scan of the chest with contrast. 2. Intrathoracic gastric "stomach" with significant hiatal hernia, probably causing the pain. He had a CT scan angiography which is negative for aortic dissection. He had esophageal air level with dilated stomach and the patient was started on Protonix and Reglan to increase the motility. Consultation with Gastroenterology. Protonix IV piggyback. We are going to also use Zofran 4 mg IV every 6 hours p.r.n. for nausea and vomiting. Laboratory in the ER showed that his white count is 9.4, hemoglobin slightly below the normal 12.2 and hematocrit is 38.8. His chemistry shows sodium 145, potassium 4.5, chloride 109, carbon dioxide 33, BUN of 26, creatinine 0.9 with blood sugar 115. In the ER, the troponin was less than 0.012 with the final impression of chest pain, ruled out aortic dissection, and gastric outlet obstruction and history of Nash's esophagus with reflux. PLAN: Patient admitted into observation. Consultation with Gastroenterology for further evaluation and treatment. We will be waiting for their input. MMODL / IJN: [id number] /
[2019-02-05] MEDS ORDERED: TAMSULOSIN 0.4 MG CAP.ER.24H PO SCH (21:00)
[2019-02-05] MEDS ORDERED: ATORVASTATIN 20 MG TAB PO SCH (21:00)
[2019-02-05] MEDS: SENNOSIDES 8.6 MG TAB PO SCH (22:00)
[2019-02-05] MEDS: PANTOPRAZOLE 40 MG/10 ML VIAL IVP SCH (22:01)
[2019-02-05] MEDS: OXYBUTYNIN CHLORIDE 5 MG TAB PO SCH (22:02)
[2019-02-06] MEDS: METOCLOPRAMIDE 5 MG/ML 2 ML VIAL IVP SCH ×3 (01:32→14:13)
[2019-02-06] MEDS: OXYBUTYNIN CHLORIDE 5 MG TAB PO SCH (08:08)
[2019-02-06] MEDS: SENNOSIDES 8.6 MG TAB PO SCH (08:08)
[2019-02-06] MEDS: PANTOPRAZOLE 40 MG/10 ML VIAL IVP SCH (08:10)
[2019-02-06] MEDS ORDERED: POTASSIUM CHLORIDE ER 10 MEQ TAB.ER.PRT PO SCH (09:00)
[2019-02-06] MEDS ORDERED: POLYETHYLENE GLYCOL 3350 17 GM POWD.PACK PO SCH (09:00)
[2019-02-06] MEDS ORDERED: HYDROCHLOROTHIAZIDE 25 MG TAB PO SCH (09:00)
--- NOTE | 2019-02-06 09:36 | P.CONS ---
History of Present Illness - Reason for Consult Consult date: 02/06/19 Nausea vomiting epigastric chest pain Requesting physician: Garrick Turcios - Chief Complaint Nausea vomiting epigastric chest pain - History of Present Illness 78-year-old gentleman with a past medical history of Clifford's esophagus, COPD pulmonary fibrosis, hiatal hernia, GERD, CAD PCI stent, hypertension, [place] presents one-week history of midsternal epigastric chest discomfort with heartburn type symptoms belching intractable nausea vomiting and a few isolated episodes of hematemesis. Patient has a history of Clifford's esophagus and when EGD evaluation September [address] Nichole with findings of long segment of Clifford's ulceration biopsies negative for dysplasia as well as a large hiatal hernia. Denies profound weight loss, fever chills gross hematochezia or melena. Denies diarrhea or constipation. Home medications include Zantac Compazine Protonix. CT chest no evidence of thoracic or abdominal aortic dissection. Partial intrathoracic stomach with fluid-filled dilated esophagus. Extensive emphysematous change of pulmonary fibrosis. Large bowel containing infraumbilical ventral hernia. White count 9.4. Hemoglobin 12.2. Platelet 170. INR 1.0. BUN 26. Creatinine 0.9. Troponin 3 less than 0.012. LFTs within normal limits. Review of Systems Constitutional: Denies fever, chills, sweats, weight gain, or loss. HEENT: Negative for migraines, blurred vision or loss, earaches, drainage, tinnitus, oral mucosal lesions, dysphagia, or odynophagia. Cardiac: Negative for chest pain, arrhythmias, or palpitation. Respiratory: Negative for shortness of breath, hemoptysis, cough, or sputum production. Gastrointestinal: See HPI for pertinent findings. Genitourinary: Negative for hematuria, urgency, frequency, polyuria, dysuria, or penile discharge. Musculoskeletal: Negative for muscle aches, swelling, arthritis, and arthralgias. Neurologic: Negative for stroke or TIA. Endocrine: Negative for thyroid problems. Skin: Negative for rash or itching. Psychiatric: Negative history for depression and anxiety Past Medical History Past Medical History: Coronary Artery Disease (CAD), Heart Failure, COPD, GERD/Reflux, Hyperlipidemia, Hypertension, Myocardial Infarction (IA), Pneumonia Additional Past Medical History / Comment(s): SOB with exertion, possible pulmonary fibrosis, occasionally "spits" up blood, hiatal hernia, Clifford's esophagus, iron anemia, constipation, sinusitis, arthritis in multiple joints. Last Myocardial Infarction Date:: 2003 History of Any Multi-Drug Resistant Organisms: None Reported Past Surgical History: Heart Catheterization With Stent, Prostate Surgery, Tonsillectomy Additional Past Surgical History / Comment(s): BILAT EYE SX FOR STRABISMUS, SKIN GRAFTS D/T POOR WOUND HEALING, TURP, EGD,. COLONOSCOPY, hemorrhoidectomy, rt foot toes bone removed, 2nd toe from great toe lt foot bone removed, R wrist/elbow carpal tunnel releases, L leg wound debridement Past Anesthesia/Blood Transfusion Reactions: No Reported Reaction Date of Last Stent Placement:: 2003 Smoking Status: Former smoker - Past Family History Mother Family Medical History: No Reported History Father Additional Family Medical History / Comment(s): mesothelioma Medications and Allergies Home Medications Medication Instructions Recorded Confirmed Type Hydrochlorothiazide [Hydrodiuril] 25 mg PO DAILY 03/23/17 02/05/19 History Oxybutynin Chloride [Ditropan] 5 mg PO TID 02/05/19 02/05/19 History Pantoprazole Sodium [Protonix] 40 mg PO BID 02/05/19 02/05/19 History Potassium Chloride ER [K-Dur 10] 10 meq PO DAILY 02/05/19 02/05/19 History Prochlorperazine [Compazine] 10 mg PO Q6HR PRN 02/05/19 02/05/19 History Ranitidine HCl [Zantac] 150 mg PO BID 02/05/19 02/05/19 History Simvastatin [Zocor] 40 mg SL 02/05/19 History Tamsulosin [Flomax] 0.4 mg PO HS 02/05/19 02/05/19 History Allergies Allergy/AdvReac Type Severity Reaction Status Date / Time No Known Allergies Allergy Verified 02/05/19 16:41 Physical Exam Vitals: Vital Signs Temp Pulse Pulse Resp BP BP Pulse Ox 02/06/19 08:00 94 18 02/06/19 07:15 98.1 F 94 18 131/81 97 02/06/19 03:25 18 02/05/19 23:54 98.7 F 74 18 100/66 99 02/05/19 19:44 88 18 02/05/19 17:09 18 02/05/19 17:01 98.5 F 88 18 130/87 96 02/05/19 16:15 98.2 F 91 18 127/88 97 02/05/19 15:28 98.6 F 89 18 124/90 98 02/05/19 12:58 98.4 F 89 16 125/83 100 Intake and Output 02/05/19 02/06/19 02/06/19 22:59 06:59 14:59 Intake Total 420 Balance 420 Intake: Oral 420 Other: Voiding Method Toilet Toilet Toilet # Voids 1 General appearance: The patient is alert, oriented, in no acute distress. HET: Head is normocephalic and atraumatic. Pupils are equal and reactive. Oropharynx is clear without lesions. Neck: Supple without lymphadenopathy. Trachea midline. Heart: S1 S2. Regular rate and rhythm. Lungs: No crackles or wheezes are heard. Abdomen: Soft, mild tenderness midepigastrium no palpable hernia, nondistended with bowel sounds. No peritoneal signs. No palpable organomegaly or masses. Extremities: Normal skin color and turgor. No cyanosis, rash, ulceration, clubbing, or edema. Radial and pedal pulses are 2/4 bilaterally. Neurological: No focal deficits. Strength and sensation are grossly intact. Results CBC & Chem 7: 02/05/19 13:05 02/05/19 13:05 Labs: Abnormal Lab Results - Last 24 Hours (Table) 02/05/19 02/05/19 Range/Units 13:05 13:05 Hgb 12.2 L (13.0-17.5) gm/dL Hct 38.8 L (39.0-53.0) % RDW 17.1 H (11.5-15.5) % Lymphocytes # 0.8 L (1.0-4.8) k/uL Chloride 109 H (98-107) mmol/L Carbon Dioxide 33 H (22-30) mmol/L BUN 26 H (9-20) mg/dL Glucose 114 H (74-99) mg/dL CT scan - chest: report reviewed (Dr. Andrews) Assessment and Plan (1) Epigastric abdominal pain Narrative/Plan: 78-year-old gentleman presents with intractable nausea vomiting epigastric chest pain 1 week duration with heartburn type symptoms without improvement with underlying history of Clifford's esophagus hiatal hernia GERD. CT chest reported partial intra-thoracic stomach with fluid-filled dilated esophagus as well as infraumbilical ventral hernia containing large bowel. Current Visit: Yes Status: Acute Code(s): R10.13 - EPIGASTRIC PAIN SNOMED Code(s): 96976576 (2) Hiatal hernia with GERD Current Visit: Yes Status: Acute Code(s): K21.9 - GASTRO-ESOPHAGEAL REFLUX DISEASE WITHOUT ESOPHAGITIS; K44.9 - DIAPHRAGMATIC HERNIA WITHOUT OBSTRUCTION OR GANGRENE SNOMED Code(s): 912059138 (3) Nausea & vomiting Current Visit: Yes Status: Acute Code(s): R11.2 - NAUSEA WITH VOMITING, UNSPECIFIED SNOMED Code(s): 20411832 (4) Clifford esophagus Current Visit: Yes Status: Acute Code(s): K22.70 - CLIFFORD'S ESOPHAGUS WITHOUT DYSPLASIA SNOMED Code(s): 424681180 Plan: 1. EGD. 2. Protonix 40 mg BID. 3. Recommend general surgical consult regarding CT hernia findings. The pawn broker has discussed the risks, benefits and alternative therapies for the above-mentioned procedure and for both sedation/analgesia as well as necessary blood product administration, if indicated, as they pertain to this patient. The patient has indicated understanding and acceptance of the risks and procedures discussed. Thank you for this kind referral and the opportunity to participate in the care of your patient. This consultation was discussed with Dr. Andrews. The impression and plan of care have been directed as dictated.
[2019-02-06] MEDS ORDERED: LIDOCAINE 1% INJ 10MG/ML (20 ML MDV) ONE (11:19)
[2019-02-06] MEDS ORDERED: PROPOFOL 10 MG/ML 20 ML VIAL IV ONE (11:19)
[2019-02-06] MEDS ORDERED: LACTATED RINGERS 1,000 ML IV ONE (11:21)
[2019-02-06] MEDS ORDERED: SODIUM CHLORIDE 0.9% 500 ML 500 ML IV ONE (11:21)
[2019-02-06 11:53] VITALS: TEMP 97.8
--- NOTE | 2019-02-06 12:08 | P.PCN ---
Date of Procedure: 02/06/19 Description of Procedure: BRIEF HISTORY: 78-year-old gentleman with a past medical history of Nash's esophagus, COPD pulmonary fibrosis, hiatal hernia, GERD, CAD PCI stent, hypertension, [place] presents one-week history of midsternal epigastric chest discomfort with heartburn type symptoms belching intractable nausea vomiting and a few isolated episodes of hematemesis. Patient has a history of Nash's esophagus and when EGD evaluation September [address] Nichole with findings of long segment of Nash's ulceration biopsies negative for dysplasia as well as a large hiatal hernia. Denies profound weight loss, fever chills gross hematochezia or melena. Denies diarrhea or constipation. Home medications include Zantac Compazine Protonix. CT chest no evidence of thoracic or abdominal aortic dissection. Partial intrathoracic stomach with fluid-filled dilated esophagus. Extensive emphysematous change of pulmonary fibrosis. Large bowel containing infraumbilical ventral hernia. PROCEDURE PERFORMED: Esophagogastroduodenoscopy with biopsy. PREOPERATIVE DIAGNOSIS: Intractable nausea and vomiting, GERD, epigastric abdominal pain. ESTIMATED BLOOD LOSS: Minimal. IV sedation per anesthesia. PROCEDURE: After informed consent was obtained, the patient was brought into the endoscopy unit. IV sedation was administered by Anesthesia under continuous monitoring. Initially the Olympus GIF-190 video endoscope was inserted into the mouth. Esophagus intubated without any difficulty. It was gradually advanced into the stomach and duodenum and carefully examined. The bulb and the second part of the duodenum appeared grossly normal except for mild scattered erythema in the bulb suggestive of duodenitis with biopsies of the duodenum taken. The scope at this time was withdrawn to the stomach, adequately insufflated with air, and upon careful examination, mucosa of the antrum, body, cardia and the fundus appeared grossly normal with mild scattered erythema in the antrum and body suggestive of mild gastritis with biopsies of the antrum and body taken. The scope was then withdrawn into the esophagus. The GE junction was located at 34 cm from the incisors. A 6 cm hiatal hernia was noted. The distal esophagus was significant for long segment Nash's which was previously identified. In addition LA grade D distal esophagitis was noted with biopsies taken of the distal esophagus. The patient tolerated the procedure well. IMPRESSION: 1. LA grade D distal esophagitis, biopsied. 2. Mild gastritis antrum and body, biopsied. 3. Mild duodenitis, biopsied. 4. Large hiatal hernia. 5. Long segment Nash's esophagus. RECOMMENDATIONS: The findings of this examination were discussed with the patient. Okay to resume diet. Continue Protonix twice daily. Will add Carafate 3 times a day before meals meals. The patient continues to have symptoms consideration for surgical referral for evaluation of hiatal hernia repair and Tico fundoplication. Thank you for allowing us to participate in care of the patient we will continue to follow.
[2019-02-06] MEDS ORDERED: SUCRALFATE 1 GM TAB PO SCH (12:30)
[2019-02-06 12:48] VITALS: BP 110/66; PULSE 89
--- NOTE | 2019-02-06 13:46 | P.DS ---
Providers Date of admission: 02/05/19 15:35 Expected date of discharge: 02/06/19 (Chest pain, and transthoracic partial gastric.) Attending physician: Grarick Turcios Consults: 02/05/19 15:38 Consult Physician Routine Consulting Provider: Wan Jarrell Consult Reason/Comments: Reflux, abdominal pain Do you want consulting provider notified?: Yes Primary care physician: Garrick Turcios Discharge summary. Patient status observation. Final diagnosis: #1 chest pain. From the front of the chest to the back of the spine was normal troponin. #2 carotid dissection has been ruled out with a chest angiogram. #3 hiatal hernia with the partial stomach and intrathoracic. #4 inability to eat with nausea and vomiting and weight loss. Status post EGD today with the underlying finding: #1 and a grade D distal esop hagitis, biopsy done #2 mild gastritis in antrum and the body biopsy done #3 mild duodenitis biopsy done number for large hiatal hernia. #5 long segment Nash's esophagus. Recommendation: Resume diet, Protonix twice a day 40 mg, Carafate 3 times a day before meals. Future plan if no improvement in the symptoms surgical referral for evaluation for hiatal hernia repair and Nissin fundoplication Follow-up with Dr. Rai Andrews gastroenterology. Patient stable general condition for discharge cleared by Dr. Andrews GI, patient on observation status. Discharge exam: Temperature 97.8, pulse 89/m regular, respiratory rate 18, blood pressure 110/66 with a mean blood pressure 80. Patient is conscious alert oriented 3 ambulatory with cane. HEENT was negative. Neck was supple no JVD no thyromegaly no lymphadenopathy trachea midline. Chest is clear to auscultation and percussion. Heart regular sinus rhythm history of stent in the past no chest pain currently. And his troponin was normal 3 Abdomen soft positive bowel sounds and he will be follow with Dr. Elizondo or Dr. andrews. Extremities no edema. Pulses with advanced arthritis. Neurologically stable. Patient presentation to the ER with the chest pain radiated to the spine underwent a chest x-ray and chest angiogram subsequently admitted on observation status. Follow-up next week in the office. Prescription for Carafate has been given to the nursing staff. Follow-up with the gastroenterology Patient Condition at Discharge: Stable Plan - Discharge Summary Discharge Rx Participant: No New Discharge Prescriptions: New Sucralfate [Carafate] 1 gm PO AC-TID #90 tab Polyethylene Glycol 3350 [Miralax] 17 gm PO DAILY powd.pack Continue Hydrochlorothiazide [Hydrodiuril] 25 mg PO DAILY Tamsulosin [Flomax] 0.4 mg PO HS Potassium Chloride ER [K-Dur 10] 10 meq PO DAILY Pantoprazole Sodium [Protonix] 40 mg PO BID Oxybutynin Chloride [Ditropan] 5 mg PO TID Simvastatin [Zocor] 40 mg SL Discontinued Ranitidine HCl [Zantac] 150 mg PO BID Prochlorperazine [Compazine] 10 mg PO Q6HR PRN PRN Reason: Nausea And Vomiting Discharge Medication List Hydrochlorothiazide [Hydrodiuril] 25 mg PO DAILY 03/23/17 [History] Oxybutynin Chloride [Ditropan] 5 mg PO TID 02/05/19 [History] Pantoprazole Sodium [Protonix] 40 mg PO BID 02/05/19 [History] Potassium Chloride ER [K-Dur 10] 10 meq PO DAILY 02/05/19 [History] Simvastatin [Zocor] 40 mg SL 02/05/19 [History] Tamsulosin [Flomax] 0.4 mg PO HS 02/05/19 [History] Polyethylene Glycol 3350 [Miralax] 17 gm PO DAILY powd.pack 02/06/19 [Rx] Sucralfate [Carafate] 1 gm PO AC-TID #90 tab 02/06/19 [Rx] Follow up Appointment(s)/Referral(s): Garrick Turcios MD [Primary Care Provider] - 1-2 days
[2019-02-06] MEDS ORDERED: PANTOPRAZOLE 40 MG TABLET PO SCH (21:00)
== END 2019-02-06 15:06 | disposition home or self-care (01) ==
LOC: EC 12:56 → 1SOBS 15:35
PROVIDERS: ADMIT Internal Medicine; ATTEND Internal Medicine
DX: R07.89 Other chest pain (principal); E78.5 Hyperlipidemia, unspecified; I50.9 Heart failure, unspecified; J44.9 Chronic obstructive pulmonary disease, unspecified; I11.0 Hypertensive heart disease with heart failure; I25.10 Atherosclerotic heart disease of native coronary artery without angina pectoris; K21.0 Gastro-esophageal reflux disease with esophagitis; K22.70 Barrett's esophagus without dysplasia; K44.9 Diaphragmatic hernia without obstruction or gangrene; K43.9 Ventral hernia without obstruction or gangrene; K29.70 Gastritis, unspecified, without bleeding; K29.80 Duodenitis without bleeding; E66.9 Obesity, unspecified; Z68.28 Body mass index [BMI] 28.0-28.9, adult; M19.90 Unspecified osteoarthritis, unspecified site; Z87.01 Personal history of pneumonia (recurrent); I25.2 Old myocardial infarction; Z87.891 Personal history of nicotine dependence; Z95.5 Presence of coronary angioplasty implant and graft; Z79.899 Other long term (current) drug therapy
CPT/HCPCS: 96376 ×2; 96365; 96375; 99285; 36415; 93005; 80053; 83735; 84484 ×2; 85025; 85610; 85730; 87040; 86677; 71046; 71275; 74174; 43239; G0378 ×2; J2765 ×2; J0456; J2001; J2704; C9113 ×2; Q9967; 88305; 88312

== ENCOUNTER → 2019-03-14 | Outpatient (CLI) | payer MEDICARE ==
[2019-03-14 19:14] LABS: Iron Saturation 5.28 (15.00-50.00)
== END ==
LOC: LABWHC1 14:13
PROVIDERS: ATTEND Internal Medicine Gastroenterology
DX: D50.9 Iron deficiency anemia, unspecified (principal)
CPT/HCPCS: 36415; 82728; 83540; 83550

== ENCOUNTER → 2019-05-01 | Outpatient (CLI) | payer MEDICARE ==
[2019-05-01 09:57] LABS: Anisocytosis Slight; Basophils % (A) 1 %; Eosinophils # (A) 0.1 k/uL (0-0.7); Eosinophils % (A) 1 %; HCT 44.3 % (39.0-53.0); HGB 13.3 gm/dL (13.0-17.5); Hypochromasia Moderate; Lymphocytes # (A) 0.7 k/uL (1.0-4.8); Lymphocytes % (A) 13 %; MCH 25.5 pg (25.0-35.0); MCHC 30.1 g/dL (31.0-37.0); MCV 84.6 fL (80.0-100.0); Mean Platelet Volume 8.5; Monocytes # (A) 0.4 k/uL (0-1.0); Monocytes % (A) 7 %; Neutrophils # (A) 3.9 k/uL (1.3-7.7); Neutrophils % (A) 75 %; Platelet Count 169 k/uL (150-450); RBC 5.23 m/uL (4.30-5.90); Reticulocyte % 0.8 % (0.5-2.0); WBC 5.2 k/uL (3.8-10.6)
[2019-05-01 17:57] LABS: African American GFR (CKD) 82.6 (60.0-200.0); Albumin 3.8 g/dL (3.80-4.90); Albumin/Globulin Ratio 1.81 (1.60-3.17); Anion Gap 5.7 mmol/L (4.00-12.00); Calcium 9.5 mg/dL (8.7-10.3); Carbon Dioxide 33.3 mmol/L (21.6-31.8); Globulin 2.1 g/dL (1.6-3.3); Total Bilirubin 0.3 mg/dL (0.2-1.2); Total Protein 5.9 g/dL (6.2-8.2)
== END | disposition home or self-care (01) ==
LOC: LABWHC1 09:08
PROVIDERS: ATTEND Internal Medicine
DX: R41.0 Disorientation, unspecified (principal)
CPT/HCPCS: 36415; 80053; 84443; 85025; 85045

== ENCOUNTER → 2019-07-10 | Outpatient (CLI) | payer MEDICARE ==
--- NOTE | 2019-07-10 15:54 | CT ---
EXAMINATION TYPE: CT brain wo con DATE OF EXAM: 07/10/2019 HISTORY: Right hemispheric CVA. CT DLP: 1222 mGycm. Automated Exposure Control for Dose Reduction was Utilized. TECHNIQUE: CT scan of the head is performed without contrast. COMPARISON: CT brain January 18, 2010. FINDINGS: There is no acute intracranial hemorrhage or midline shift identified. There is diffuse v entricular and sulcal prominence consistent with diffuse age-related cerebral atrophy. There is low- attenuation in the periventricular white matter consistent with chronic small vessel ischemic change. The globes are intact and the visualized sinuses are clear. IMPRESSION: No acute intracranial hemorrhage or midline shift. There is moderate diffuse age-relate d cerebral atrophy and chronic small vessel ischemic change redemonstrated with progression from 2010 CT noted.
--- NOTE | 2019-07-11 08:55 | US ---
EXAMINATION TYPE: US carotid duplex BILAT DATE OF EXAM: 07/10/2019 COMPARISON: NONE CLINICAL HISTORY: I63.9 Right Hemispheric CVA G45.9 I65.23. TIA, patient states he has no symptoms EXAM MEASUREMENTS: RIGHT: Peak Systolic Velocity (PSV) cm/sec ----- Right CCA: 56.0 ----- Right ICA: 54.4 ----- Right ECA: 53.9 ICA/CCA ratio: 1.0 RIGHT: End Diastole cm/sec ----- Right CCA: 12.5 ----- Right ICA: 21.6 ----- Right ECA: 9.0 LEFT: Peak Systolic Velocity (PSV) cm/sec ----- Left CCA: 36.0 ----- Left ICA: 41.3 ----- Left ECA: 46.9 ICA/CCA ratio: 1.1 LEFT: End Diastole cm/sec ----- Left CCA: 11.3 ----- Left ICA: 17.6 ----- Left ECA: 4.7 VERTEBRALS (direction of flow): Right Vertebral: Antegrade Left Vertebral: Antegrade Rhythm: Normal Mild heterogeneous plaque bilaterally with no significant stenosis seen IMPRESSION: No evidence for hemodynamically significant stenosis. Criteria for Assigning % of Stenosis / Diameter reduction (Estimation based on the indirect measurements of the internal carotid artery velocities (ICA PSV). 1. Normal (no stenosis)=ICA PSV < 125 cm/s: ratio < 2.0: ICA EDV<40 cm/s. 2. Less than 50% stenosis=ICA PSV < 125 cm/s: ratio < 2.0: ICA EDV<40 cm/s. 3. 50 to 69% stenosis=ICA PSV of 125 to 230 cm/s: ration 2.0 ? 4.0: ICA EDV 40-100 cm/s. 4. Greater than 70% stenosis to near occlusion= ICA PSV > 230 cm/s: ratio > 4.0: ICA EDV > 100 cm/s. 5. Near occlusion= ICA PSV velocities may be low or undetectable: variable ratio and ICA EDV. 6. Total occlusion=unable to detect flow.
== END | disposition home or self-care (01) ==
LOC: RADCTMAIN 15:26
PROVIDERS: ATTEND Psychiatry & Neurology Neurology
DX: G31.1 Senile degeneration of brain, not elsewhere classified (principal); I67.82 Cerebral ischemia; I65.23 Occlusion and stenosis of bilateral carotid arteries; I65.21 Occlusion and stenosis of right carotid artery; I63.9 Cerebral infarction, unspecified; G45.9 Transient cerebral ischemic attack, unspecified
CPT/HCPCS: 70450; 93880

== ENCOUNTER → 2019-08-13 | Outpatient (CLI) | payer MEDICARE ==
[2019-08-13 13:07] LABS: Basophils # (A) 0.1 k/uL (0-0.2); Basophils % (A) 2 %; Eosinophils % (A) 0 %; HCT 46.6 % (39.0-53.0); HGB 15.2 gm/dL (13.0-17.5); Hypochromasia Slight; Lymphocytes # (A) 0.7 k/uL (1.0-4.8); Lymphocytes % (A) 15 %; MCH 29.2 pg (25.0-35.0); MCHC 32.5 g/dL (31.0-37.0); MCV 89.9 fL (80.0-100.0); Mean Platelet Volume 7.6; Monocytes # (A) 0.4 k/uL (0-1.0); Monocytes % (A) 9 %; Neutrophils # (A) 3.2 k/uL (1.3-7.7); Neutrophils % (A) 71 %; Platelet Count 169 k/uL (150-450); RBC 5.18 m/uL (4.30-5.90); RDW 14.8 % (11.5-15.5); WBC 4.5 k/uL (3.8-10.6)
[2019-08-13 15:17] LABS: Erythrocyte Sedimentation Rate 8 mm/hr (0-15)
[2019-08-13 21:00] LABS: ALT 14 U/L (10-49); AST 21 U/L (14-35); African American GFR (CKD) 93.2 (60.0-200.0); Albumin/Globulin Ratio 1.63 (1.60-3.17); Alkaline Phosphatase 129 U/L (41-126); BUN/Creat Ratio 16.67 Ratio (12.00-20.00); C Reactive Protein <0.4 mg/dL (0.0-0.8); Calcium 9.4 mg/dL (8.7-10.3); Carbon Dioxide 30.6 mmol/L (21.6-31.8); Chloride 106 mmol/L (96-109); Cholesterol 141 mg/dL (0-200); Creatine Kinase 107 U/L (35-257); Globulin 2.4 g/dL (1.6-3.3); Glucose 77 mg/dL (70-110); Magnesium 1.9 mg/dL (1.5-2.4); Phosphorus 3.4 mg/dL (2.4-5.1); Potassium 4.3 mmol/L (3.5-5.5); Sodium 144 mmol/L (135-145); Total Bilirubin 0.6 mg/dL (0.3-1.2); Total Protein 6.3 g/dL (6.2-8.2); Triglycerides <50.0 mg/dL (0.0-149.0); Uric Acid 5.7 mg/dL (3.7-8.7)
== END | disposition home or self-care (01) ==
LOC: LABWHC1 11:14
PROVIDERS: ATTEND Internal Medicine
DX: D64.9 Anemia, unspecified (principal); N40.0 Benign prostatic hyperplasia without lower urinary tract symptoms; I50.9 Heart failure, unspecified; J44.9 Chronic obstructive pulmonary disease, unspecified; I12.9 Hypertensive chronic kidney disease with stage 1 through stage 4 chronic kidney disease, or unspecified chronic kidney disease; N18.3 Chronic kidney disease, stage 3 (moderate); E78.5 Hyperlipidemia, unspecified; E03.9 Hypothyroidism, unspecified; E55.9 Vitamin D deficiency, unspecified
CPT/HCPCS: 36415; 80053; 80061; 82306; 82550; 83735; 83970; 84100; 84153; 84443; 84550; 85025; 85652; 86140

== ENCOUNTER → 2020-07-08 | Outpatient (CLI) | payer MEDICARE ==
[2020-07-08 13:46] LABS: Basophils % (A) 1 %; Eosinophils % (A) 1 %; HCT 50.3 % (39.0-53.0); Lymphocytes # (A) 0.7 k/uL (1.0-4.8); Lymphocytes % (A) 18 %; MCH 28.8 pg (25.0-35.0); MCHC 31.8 g/dL (31.0-37.0); MCV 90.8 fL (80.0-100.0); Mean Platelet Volume 8.7; Monocytes # (A) 0.3 k/uL (0-1.0); Monocytes % (A) 8 %; Neutrophils # (A) 2.9 k/uL (1.3-7.7); Neutrophils % (A) 71 %; Platelet Count 158 k/uL (150-450); RBC 5.54 m/uL (4.30-5.90); RDW 14.1 % (11.5-15.5); WBC 4.1 k/uL (3.8-10.6)
[2020-07-08 20:28] LABS: Erythrocyte Sedimentation Rate 5 mm/Hr (0-20)
[2020-07-08 21:34] LABS: DNA Double-Stranded NEGATIVE (NEGATIVE)
[2020-07-08 21:41] LABS: Ferritin 47.1 ng/mL (22.0-322.0)
[2020-07-08 22:45] LABS: % Iron Saturation 15.59 (15.00-50.00); ALT 9 U/L (10-49); AST 21 U/L (14-35); African American GFR (CKD) 92.5 (60.0-200.0); Alkaline Phosphatase 137 U/L (41-126); BUN/Creat Ratio 14.44 Ratio (12.00-20.00); C Reactive Protein <0.4 mg/dL (0.0-0.8); Calcium 9.2 mg/dL (8.7-10.3); Carbon Dioxide 28.4 mmol/L (21.6-31.8); Chloride 104 mmol/L (96-109); Chol/HDL Ratio 3.06; Cholesterol 150 mg/dL (0-200); Globulin 2.6 g/dL (1.6-3.3); Glucose 74 mg/dL (70-110); Iron 46 ug/dL (65-175); Non-African American GFR(CKD) 79.8 (60.0-200.0); Potassium 4.2 mmol/L (3.5-5.5); Prostate Specific Antigen 1.2 ng/mL (0.0-6.5); Rheumatoid Factor, Qnt 18 IU/mL (0-15); Sodium 140 mmol/L (135-145); Total Bilirubin 0.5 mg/dL (0.3-1.2); Total Iron Binding Capacity 295 ug/dL (228-460); Total Protein 6.5 g/dL (6.2-8.2); Triglycerides <50.0 mg/dL (0.0-149.0)
[2020-07-09 13:32] LABS: ANA Pattern Homogeneous
== END | disposition home or self-care (01) ==
LOC: LABWHC1 11:34
PROVIDERS: ATTEND Internal Medicine
DX: D64.9 Anemia, unspecified (principal); E05.90 Thyrotoxicosis, unspecified without thyrotoxic crisis or storm; R63.4 Abnormal weight loss
CPT/HCPCS: 36415; 80053; 80061; 82728; 83540; 83550; 84153; 84439; 84443; 85025; 85652; 86038; 86039; 86140; 86225; 86431

== ENCOUNTER → 2020-08-07 | Outpatient (CLI) | payer MEDICARE ==
--- NOTE | 2020-08-07 19:40 | FL ---
EXAMINATION TYPE: FL UGI air w small bowel DATE OF EXAM: 08/07/2020 COMPARISON: CTA chest abdomen pelvis 02/05/2019 HISTORY: Abnormal weight loss, vomiting, GERD, constipation TECHNIQUE: A double contrast UGI study is performed with small bowel follow through. FINDINGS: [employer] image of the abdomen shows moderate colonic fecal debris degenerative changes of the spine, and interstitial coarsening of the bilateral lung bases. The esophagus shows normal motility, mucosal pattern, and emptying into the stomach. Small to moderat e sliding hiatal hernia. No stricture noted. The stomach shows normal distensibility, peristalsis, and mucosal folds. No evidence of any mass or ulcer disease. Moderate spontaneous esophageal reflux was seen during real time performance of this s tudy. The duodenal bulb and sweep are unremarkable. The small bowel study shows normal transit to the colon in 3 hours 45 minutes. There is normal mucos al fold pattern throughout the small bowel. There is no evidence of any stricture or filling defect noted. Total fluoroscopy time: 1 minute 37 seconds Total images obtained: 36 IMPRESSION: 1. Small to moderate hiatal hernia. 2. Moderate spontaneous gastroesophageal reflux. 3. Normal small bowel follow through.
== END | disposition home or self-care (01) ==
LOC: RADFLMAIN 08:08
PROVIDERS: ATTEND Internal Medicine
DX: K44.9 Diaphragmatic hernia without obstruction or gangrene (principal); K21.9 Gastro-esophageal reflux disease without esophagitis
CPT/HCPCS: 74240; 74248

== ENCOUNTER → 2020-08-17 | Outpatient (CLI) | payer MEDICARE ==
--- NOTE | 2020-08-17 12:44 | FL ---
EXAMINATION TYPE: FL barium swallow DATE OF EXAM: 08/17/2020 CLINICAL INDICATION: 80-year-old male R63.4, abnormal weight loss, R11.2, vomiting, K44.9. COMPARISON: Upper GI and small bowel follow-through 08/07/2020 Total Fluoroscopy Time: 2 minutes 49 seconds Total images: 50 FINDINGS: The swallowing mechanism is normal. Possible slight nodular thickening along the anterior wall of the hypopharynx. Direct visualization can further evaluate. The thoracic portions have a normal course. Mild generalized distention following administration of t he effervescent granules. The mucosa is normal and no persistent filling defect or fixed narrowing is encountered. Mild tertiary peristalsis and blunted secondary stripping waves. There is a moderate size hiatal hernia. Valsalva and turning maneuver results in backfilling into the hiatal hernia along with moderate gastr oesophageal reflux. IMPRESSION: 1. Moderate sized hiatal hernia. Moderate gastroesophageal reflux was visualized during the course of the exam. This may be underestimated given the patient's symptoms. 2. Possible slight nodular thickening along the anterior wall of the hypopharynx. Findings could repr esent some inflammatory change such as from GERD. Direct visualization recommended to exclude a mucos al lesion. 3. Mild esophageal dysmotility.
== END | disposition home or self-care (01) ==
LOC: RADUSWWP 09:13
PROVIDERS: ATTEND Internal Medicine
DX: K44.9 Diaphragmatic hernia without obstruction or gangrene (principal); K21.9 Gastro-esophageal reflux disease without esophagitis; K22.4 Dyskinesia of esophagus
CPT/HCPCS: 74220

== ENCOUNTER → 2020-09-08 | Outpatient (CLI) | payer MEDICARE ==
[2020-09-08 16:51] LABS: Appearance,Urine Clear (Clear); Bilirubin,Urine Negative (Negative); Blood,Urine Negative (Negative); Color,Urine Yellow; Glucose,Urine (UA) Negative (Negative); Ketones,Urine Negative (Negative); Leukocyte Esterase,Urine Negative (Negative); Nitrite,Urine Negative (Negative); Protein,Urine Trace (Negative); Specific Gravity,Urine 1.026 (1.001-1.035); Urobilinogen,Urine <2.0 mg/dL (<2.0)
[2020-09-09 01:36] LABS: African American GFR (CKD) 81.4 (60.0-200.0); Anion Gap 8.8 mmol/L (4.00-12.00); Calcium 9.4 mg/dL (8.7-10.3); Carbon Dioxide 29.2 mmol/L (21.6-31.8); Non-African American GFR(CKD) 70.3 (60.0-200.0); Potassium 4.4 mmol/L (3.5-5.5)
== END | disposition home or self-care (01) ==
LOC: LABWHC1 16:28
PROVIDERS: ATTEND Internal Medicine
DX: E87.8 Other disorders of electrolyte and fluid balance, not elsewhere classified (principal); N39.0 Urinary tract infection, site not specified
CPT/HCPCS: 36415; 80048; 81003; 87086

== ENCOUNTER → 2020-12-07 | Outpatient (CLI) | payer MEDICARE ==
[2020-12-07 15:37] LABS: Creatinine,Urine Random 37.9 mg/dL; Protein/Creatinine Ratio,Urine 0.237
[2020-12-07 22:07] LABS: Basophils # (A) 0.04 X 10*3/uL (0.00-0.10); Basophils % (A) 0.6 %; Eosinophils # (A) 0.05 X 10*3/uL (0.04-0.35); Eosinophils % (A) 0.8 %; HCT 40.4 % (39.6-50.0); HGB 13.2 g/dL (13.0-17.0); Lymphocytes # (A) 0.84 X 10*3/uL (0.90-5.00); Lymphocytes % (A) 12.6 %; MCH 31.8 pg (27.0-32.0); MCHC 32.7 g/dL (32.0-37.0); MCV 97.3 fL (80.0-97.0); Mean Platelet Volume 11.9 fL (9.5-12.2); Monocytes # (A) 0.73 X 10*3/uL (0.20-1.00); Neutrophils # (A) 4.99 X 10*3/uL (1.80-7.70); Neutrophils % (A) 74.8 %; Platelet Count 203 X 10*3/uL (140-440); RBC 4.15 X 10*6/uL (4.40-5.60); RDW 15.5 % (11.5-14.5); WBC 6.66 X 10*3/uL (4.50-10.00)
[2020-12-07 23:29] LABS: Erythrocyte Sedimentation Rate 31 mm/Hr (0-20)
[2020-12-08 03:47] LABS: African American GFR (CKD) 97.1 (60.0-200.0); Albumin 3.6 g/dL (3.80-4.90); Albumin/Globulin Ratio 1.5 (1.60-3.17); Anion Gap 7.5 mmol/L (4.00-12.00); Calcium 9.1 mg/dL (8.7-10.3); Carbon Dioxide 31.5 mmol/L (21.6-31.8); Globulin 2.4 g/dL (1.6-3.3); Non-African American GFR(CKD) 83.8 (60.0-200.0); Potassium 4.5 mmol/L (3.5-5.5); Total Bilirubin 0.4 mg/dL (0.2-1.2)
== END | disposition home or self-care (01) ==
LOC: LABWHC1 13:52
PROVIDERS: ATTEND Internal Medicine
DX: E03.9 Hypothyroidism, unspecified (principal); D64.9 Anemia, unspecified; I50.9 Heart failure, unspecified; I27.20 Pulmonary hypertension, unspecified; R60.9 Edema, unspecified
CPT/HCPCS: 36415; 80053; 82550; 82570; 83880; 84156; 84443; 85025; 85652

== ENCOUNTER → 2021-09-11 | Outpatient (CLI) | payer MEDICARE ==
[2021-09-11 13:25] LABS: Appearance,Urine Clear (Clear); Bilirubin,Urine Negative (Negative); Blood,Urine Negative (Negative); Color,Urine Light Yellow; Glucose,Urine (UA) Negative (Negative); Ketones,Urine Negative (Negative); Leukocyte Esterase,Urine Negative (Negative); Nitrite,Urine Negative (Negative); Protein,Urine Negative (Negative); Specific Gravity,Urine 1.007 (1.001-1.035); Urobilinogen,Urine <2.0 mg/dL (<2.0)
[2021-09-11 13:37] LABS: Creatinine,Urine Random 21.2 mg/dL; Protein/Creatinine Ratio,Urine 0.519
[2021-09-11 17:48] LABS: ALT 8 U/L (10-49); AST 21 U/L (14-35); African American GFR (CKD) 88.6 (60.0-200.0); Albumin 3.5 g/dL (3.8-4.9); Albumin/Globulin Ratio 1.11 (1.60-3.17); Alkaline Phosphatase 125 U/L (41-126); Calcium 9.2 mg/dL (8.7-10.3); Carbon Dioxide 30.4 mmol/L (21.6-31.8); Chloride 103 mmol/L (96-109); Chol/HDL Ratio 2.93 Ratio; Creatine Kinase 110 U/L (35-257); Globulin 3.2 g/dL (1.6-3.3); Glucose 84 mg/dL (70-110); LDL Cholesterol,Calculated 85.5 mg/dL (0.0-131.0); Magnesium 2.1 mg/dL (1.5-2.4); Non-African American GFR(CKD) 76.5 (60.0-200.0); Phosphorus 3.3 mg/dL (2.4-5.1); Potassium 4.5 mmol/L (3.5-5.5); Sodium 143 mmol/L (135-145); Total Protein 6.7 g/dL (6.2-8.2); Uric Acid 4.8 mg/dL (3.7-8.7); VLDL Calculation 10.62 mg/dL (5.00-40.00)
[2021-09-11 18:00] LABS: Basophils # (A) 0.03 X 10*3/uL (0.00-0.10); Basophils % (A) 0.6 %; Eosinophils # (A) 0.02 X 10*3/uL (0.04-0.35); Eosinophils % (A) 0.4 %; HCT 34.7 % (39.6-50.0); HGB 11.3 g/dL (13.0-17.0); Lymphocytes # (A) 0.75 X 10*3/uL (0.90-5.00); Lymphocytes % (A) 13.9 %; MCH 29.7 pg (27.0-32.0); MCHC 32.6 g/dL (32.0-37.0); MCV 91.3 fL (80.0-97.0); Mean Platelet Volume 12.5 fL (9.5-12.2); Monocytes % (A) 11.1 %; Neutrophils # (A) 3.99 X 10*3/uL (1.80-7.70); Neutrophils % (A) 73.8 %; Platelet Count 212 X 10*3/uL (140-440); RDW 18.1 % (11.5-14.5)
[2021-09-11 18:20] LABS: C Reactive Protein <0.30 mg/dL (0.00-0.80)
[2021-09-11 19:33] LABS: Erythrocyte Sedimentation Rate 50 mm/Hr (0-20)
== END | disposition home or self-care (01) ==
LOC: LABWHC1 11:07
PROVIDERS: ATTEND Internal Medicine
DX: Z00.00 Encounter for general adult medical examination without abnormal findings (principal); E03.9 Hypothyroidism, unspecified; N40.0 Benign prostatic hyperplasia without lower urinary tract symptoms; J44.9 Chronic obstructive pulmonary disease, unspecified; N18.30 Chronic kidney disease, stage 3 unspecified; E78.5 Hyperlipidemia, unspecified; N39.0 Urinary tract infection, site not specified; E55.9 Vitamin D deficiency, unspecified
CPT/HCPCS: 36415; 80053; 80061; 81003; 82306; 82550; 82570; 83735; 83970; 84100; 84153; 84156; 84439; 84443; 84550; 85025; 85652; 86140